=== PATIENT | female | born 1955 | race Caucasian/White ===

== ENCOUNTER → 2017-02-21 | Outpatient (CLI) | payer BC ==
[~2017-02-21] MED LIST: AC325T; ACC15GT EXT; ACYC800T57 PO; CIPR500S2; DIAZ5TAB3; HYDR1TAB8 OP
--- NOTE | 2017-02-21 20:01 | Diagnostic Imaging Report ---
Bilateral screening mammogram The current study was also evaluated with a Computer Aided Detection (CAD) system. Indication: Screening. No current complaints stated on the questionnaire. COMPARISON: 01/16/16. FINDINGS: The breasts are composed of heterogeneously dense parenchyma which may decrease mammographic sensitivity. Biopsy clip in the outer aspect of the right breast is seen. There is no mass, architectural distortion or suspicious cluster of calcification identified. Allowing for technique and positional differences, no suspicious change is seen. IMPRESSION: Dense breasts with no definite change. ACR BI-RADS Category 2: Benign findings. Result letter will be mailed to the patient. Note: At least 10% of breast cancer is not imaged by mammography. Dictated by: Dictated on workstation # [id number]
== END ==
LOC: RAD 11:08
PROVIDERS: ATTEND Nurse Practitioner Family
DX: Z12.31 Encounter for screening mammogram for malignant neoplasm of breast (principal)
CPT/HCPCS: 77067

== ENCOUNTER → 2018-03-14 | Outpatient (CLI) | payer BC ==
--- NOTE | 2018-03-14 12:56 | Diagnostic Imaging Report ---
INDICATION: Routine screening. Comparison is made with prior study from 02/21/2017 and 01/16/2016. The current study was also evaluated with a Computer Aided Detection (CAD) system. Both breasts are heterogeneously dense, limiting the sensitivity of mammography. Biopsy clip upper outer right breast is again noted. The overall parenchymal pattern appears to be stable. No dominant mass or malignant appearing microcalcifications are seen. The axillae are unremarkable. IMPRESSION: BI-RADS category 2 No mammographic features suspicious for malignancy are identified. ACR BI-RADS Category 2: Benign findings. Result letter will be mailed to the patient. Note: At least 10% of breast cancer is not imaged by mammography. Dictated by: Dictated on workstation # [id number]
== END ==
LOC: RAD 10:00
PROVIDERS: ATTEND Nurse Practitioner Family
DX: Z12.31 Encounter for screening mammogram for malignant neoplasm of breast (principal)
CPT/HCPCS: 77067

== ENCOUNTER → 2018-12-19 | Outpatient (CLI) | payer BC ==
--- NOTE | 2018-12-19 13:20 | Diagnostic Imaging Report ---
PROCEDURE: US Non-ob pelvis comp/trans. TECHNIQUE: Multiple realtime grayscale images were obtained of the pelvis in various projections endovaginally. Transabdominal imaging was also performed. INDICATION: Postmenopausal bleeding. FINDINGS: The uterus measures 5.0 x 4.7 x 2.5 cm. The endometrium is 5 mm in thickness. There may be trace fluid within the endometrial canal. No myometrial mass is seen. Adnexal evaluation was performed. Ovaries cannot be visualized due to overlying bowel gas. No adnexal mass or free fluid is detected. IMPRESSION: 1. Nonvisualized ovaries. 2. Trace fluid in the endometrial canal. The study is otherwise unremarkable. Dictated by: Dictated on workstation # [id number]
== END ==
LOC: RAD 10:49
PROVIDERS: ATTEND Obstetrics & Gynecology
DX: N95.0 Postmenopausal bleeding (principal)
CPT/HCPCS: 76830; 76856

== ENCOUNTER → 2019-05-28 | Outpatient (CLI) | payer BC ==
--- NOTE | 2019-05-28 13:54 | Diagnostic Imaging Report ---
INDICATION: Screening. TECHNIQUE: The current study was also evaluated with a Computer Aided Detection (CAD) system. 3D Tomographic imaging was also performed. COMPARISON: 03/14/2018, 02/21/2017, and 09/15/2016. FINDINGS: The fibroglandular tissue is heterogeneously dense bilaterally. There is a surgical clip in the upper-outer right breast. There are a few benign type calcifications. There is no dominant mass, spiculated lesion, or suspicious calcification identified. IMPRESSION: Benign findings. ACR BI-RADS Category 2: Benign findings. Result letter will be mailed to the patient. Note: At least 10% of breast cancer is not imaged by mammography. Dictated by: Dictated on workstation # [id number]
== END ==
LOC: RAD 10:08
PROVIDERS: ATTEND Obstetrics & Gynecology
DX: Z12.31 Encounter for screening mammogram for malignant neoplasm of breast (principal)
CPT/HCPCS: 77067

== ENCOUNTER → 2021-05-05 | Outpatient (CLI) | payer BC ==
--- NOTE | 2021-05-05 13:36 | Diagnostic Imaging Report ---
INDICATION: Screening for osteoporosis. COMPARISON: None. FINDINGS: The bone mineral density of the spine, the hips and the femoral necks was measured. There are no prior studies available for comparison. The total T score for the spine is -2.6. The total T score for the left hip is -2.8 and for the right hip -3.0. The T score for the left femoral neck is -2.9 and for the right femoral neck -2.8. All of these values fall within the range of osteoporosis. AP Spine L1-L4: [BMD (g/cm2): 0.883] [T-Score: -2.6] [Z-Score: -0.9] [BMD Previous: na] [BMD % Change: na] LT Hip Neck: [BMD (g/cm2): 0.637] [T-Score: -2.9] [Z-Score: -1.3] LT Hip Total: [BMD (g/cm2):0.653] [T-Score:-2.8] [Z-Score: -1.5] [BMD Previous: na] [BMD % Change: na] RT Hip Neck: [BMD (g/cm2):0.647] [T-Score:-2.8] [Z-Score:-1.2] RT Hip Total: [BMD (g/cm2):0.632] [T-score:-3.0] [Z-Score:-1.7] [BMD Previous:na] [BMD % Change:na] *Indicates significant change from prior examination based on 95% confidence level. World Health Organization criteria for BMD interpretation classify patients as Normal (T-score at or above -1.0), Osteopenic (T-score between -1.0 and -2.5) or Osteoporotic (T-score at or below -2.5). LIMITATIONS AND MODIFICATION: None. FRACTURE RISK (FRAX SCORE): The ten year probability of (%): Major Osteoporotic Fracture: [na] Hip Fracture: [na] IMPRESSION: 1. There is osteoporosis of the spine, the hips and the femoral necks. 2. See below National Osteoporosis Foundation guidelines on when to potentially initiate pharmacologic therapy. Based on the National Osteoporosis Foundation Guidelines, pharmacologic treatment should be initiated in any of the following, unless clinical conditions suggest otherwise: * Any patient with prior fragility fracture of the hip or vertebrae. A spine fracture indicates 5X risk for subsequent spine fracture and 2X risk for subsequent hip fracture. * Osteoporosis (T-score <-2.5). * Postmenopausal women and men age 50 and older with low bone mass/osteopenia (T-score between -1.0 and -2.5) by DXA and 10-year major osteoporotic fracture greater than 20% or a 10-year probability of hip fracture greater than 3%. These fracture risks are supplied above in the FRAX score, if applicable. * Clinician judgement and/or patient preferences may indicate treatment for people with 10-year fracture probabilities above or below these levels. Dictated by: Dictated on workstation # [id number]
--- NOTE | 2021-05-06 10:05 | Diagnostic Imaging Report ---
EXAMINATION: Digital mammogram bilateral screening with CAD. INDICATION: Screening. COMPARISON: This study was compared to the prior exams of 05/28/2019, 03/14/2018, and 02/21/2017. PERSONAL HISTORY: At this time, there are no current complaints. FINDINGS: The fibroglandular tissue in both breasts is heterogeneously dense. This does limit the sensitivity of this exam. Overall, there does not appear to have been any significant change when compared to the prior study. No primary or secondary sign of malignancy is noted. The stereotactic clip deep in the upper outer quadrant of the right breast seen previously is again evident and no different. IMPRESSION: There is no radiographic evidence for malignancy. ACR BI-RADS Category 1: Negative. Result letter will be mailed to the patient. Note: At least 10% of breast cancer is not imaged by mammography. Dictated by: Dictated on workstation # [id number]
== END ==
LOC: RAD 12:30
PROVIDERS: ATTEND Obstetrics & Gynecology
DX: Z12.31 Encounter for screening mammogram for malignant neoplasm of breast (principal); Z13.820 Encounter for screening for osteoporosis; M81.0 Age-related osteoporosis without current pathological fracture
CPT/HCPCS: 77063; 77067; 77080

== ENCOUNTER → 2023-01-18 | Outpatient (CLI) | payer BC ==
--- NOTE | 2023-01-18 15:19 | Diagnostic Imaging Report ---
PROCEDURE: US Non-ob pelvis comp/trans. INDICATION: Postmenopausal bleeding TECHNIQUE: Multiple real time landry scale sonographic images were obtained of the pelvis transabdominally and endovaginally. CORRELATION STUDY: 12/19/2018 FINDINGS: UTERUS: 8.6 x 3.6 x 5.3 cm. The uterus appearing unremarkable. ENDOMETRIUM: 1.3 cm. The endometrium is considered abnormally thickened in a postmenopausal patient. RIGHT OVARY: 1.7 x 1.3 x 1.2 cm. The right ovary has a generally unremarkable appearance. LEFT OVARY: Not visualized, perhaps obscured by overlying bowel gas.. No significant free pelvic fluid. IMPRESSION: 1. The endometrium is considered abnormally thickened in a postmenopausal patient. While some of this may be owing to reported hormone stimulation, particularly given abnormal endometrial bleeding, the possibility of malignancy should be excluded. Dictated by: Dictated on workstation # [id number]
== END ==
LOC: RAD 12:00
PROVIDERS: ATTEND Nurse Practitioner Women's Health
DX: N85.8 Other specified noninflammatory disorders of uterus (principal); N95.0 Postmenopausal bleeding
CPT/HCPCS: 76830; 76856

== ENCOUNTER 2023-01-31 05:40 | Outpatient (CLI) | payer BC ==
[~2023-01-31] VITALS: Ht 167.7 cm; Wt 59.1 kg
[2023-01-31] MEDS ORDERED: MULT-1021 PO (10:03)
[2023-01-31] MEDS ORDERED: IBUP1TAB PO (10:03)
[2023-01-31] MEDS ORDERED: ESTR0.5T VG (10:03)
[2023-01-31] MEDS ORDERED: [UNRECOGNIZED DRUG - CODE] PO (10:03)
[2023-01-31] MEDS ORDERED: CALC-722 PO (10:03)
== END 2023-01-31 12:32 | disposition home or self-care (01) ==
LOC: PREOP 05:40
PROVIDERS: ATTEND Obstetrics & Gynecology
DX: Z01.818 Encounter for other preprocedural examination (principal)

== ENCOUNTER 2023-02-01 11:25 | Day surgery (SDC) | payer BC ==
[2023-02-01] VITALS (11 sets, daily range): BP systolic 82–104; BP diastolic 0–59
[~2023-02-01] VITALS: Ht 167.7 cm; Wt 59.1 kg
[~2023-02-01 11:25] MED LIST changes: +CALC-722 PO; +ESTR0.5T VG; +IBUP1TAB PO; +MULT-1021 PO; +[UNRECOGNIZED DRUG - CODE] PO
[2023-02-01 12:26] LABS: BASOPHILS % (AUTO) 0 % (0-10); EOSINOPHILS # (AUTO) 0.1 10^3/uL (0.0-0.3); EOSINOPHILS % (AUTO) 1 % (0-10); HEMATOCRIT 40 % (35-52); HEMOGLOBIN 13.1 g/dL (11.5-16.0); LYMPHOCYTES # (AUTO) 1.6 10^3/uL (1.0-4.0); LYMPHOCYTES % (AUTO) 20 % (12-44); MEAN CORPUSCULAR HEMOGLOBIN 31 pg (25-34); MEAN CORPUSCULAR HGB CONC 33 g/dL (32-36); MEAN CORPUSCULAR VOLUME 93 fL (80-99); MEAN PLATELET VOLUME 11.9 fL (9.0-12.2); MONOCYTES # (AUTO) 0.5 10^3/uL (0.0-1.0); MONOCYTES % (AUTO) 6 % (0-12); NEUTROPHILS # (AUTO) 5.7 10^3/uL (1.8-7.8); NEUTROPHILS % (AUTO) 73 % (42-75); PLATELET COUNT 201 10^3/uL (130-400); WHITE BLOOD COUNT 7.9 10^3/uL (4.3-11.0)
[2023-02-01] MEDS ORDERED: BUPIVACAINE 0.25% 30 ML (SENSORCAINE) VIAL ONE (12:39)
[2023-02-01] MEDS ORDERED: fentaNYL INJ 100 MCG/2 ML AMP ONE (13:25)
[2023-02-01] MEDS ORDERED: LIDOCAINE PF 2% 5 ML (XYLOCAINE) VIAL ONE (13:25)
[2023-02-01] MEDS ORDERED: KETOROLAC 30 MG/ML VIAL ONE (13:25)
[2023-02-01] MEDS ORDERED: proPOfol 200 MG/20 ML (DIPRIVAN) VIAL IV ONE (13:25)
[2023-02-01] MEDS ORDERED: MIDAZOLAM 2 MG/2 ML (VERSED) VIAL ONE (13:25)
[2023-02-01] MEDS ORDERED: SEVOFLURANE (ULTANE) 15 ML INHAL SOLN ONE (13:25)
--- NOTE | 2023-02-01 13:41 | History & Physical-Surgical ---
HPO-Surgical History of Present Illness Chief Complaint: PMB Diagnosis/Surgical Indication: THICKENED ENDOMETRIUM, PMB Procedure: DILATION AND CURETTAGE Date of Surgery: Feb 01, 2023 Allergies and Home Medications Allergies Coded Allergies: Penicillins (Unverified Allergy, Mild, 05/26/09) Patient Home Medication List Home Medication List Reviewed: Yes Acetaminophen (Tylenol) 325 Mg Tablet, (Reported) Entered as Reported by: ROSA MARIA CHAUDHARI on 05/26/09 1054 Calcium Carb & Citrate/Vit D3 (Citracal + D ER Tablet) 600MG-12.5 Tablet.er, 1 EACH PO DAILY, (Reported) Entered as Reported by: Guerline Pan on 01/31/23 1003 Chlorphen/Pseudoeph/Ibuprofen (Advil Allergy Sinus Caplet) 2 Mg-30 Mg-200 Mg Tablet, 1 EACH PO, (Reported) Entered as Reported by: Guerline Pan on 01/31/23 1003 Estradiol (Estradiol Tablet) 0.5 Mg Tablet, 0.5 MG VG 3 TIMES A WEEK, (Reported) Entered as Reported by: Guerline Pan on 01/31/23 1003 Lactase (Lactaid) 3,000 Unit Tablet, 3,000 UNIT PO, (Reported) Entered as Reported by: Guerline Pan on 01/31/23 1003 Multivits-Min/Iron/FA/Lutein (Centrum Silver Women Tablet) 8 Mg Iron-400 Mcg-300 Mcg Tablet, 1 EACH PO DAILY, (Reported) Entered as Reported by: Guerline Pan on 01/31/23 1003 Discontinued Medications Acyclovir (Zovirax) 800 Mg Tablet, 1 EA PO 5XD Discontinued Reason: No Longer Taking Prescribed by: MARISELA QUINTANILLA on 05/26/09 1226 Acyclovir (Zovirax Oint) 15 Gm Oint, 0 EXT 5XD Discontinued Reason: No Longer Taking Prescribed by: MARISELA QUINTANILLA on 05/26/09 1226 Ciprofloxacin (Cipro) 500 Mg/5 Ml [facility], (Reported) Discontinued Reason: No Longer Taking Entered as Reported by: ROSA MARIA CHAUDHARI on 05/26/09 1053 Diazepam (Diazepam 5 Mg) 5 Mg Tablet, (Reported) Discontinued Reason: No Longer Taking Entered as Reported by: ROSA MARIA CHAUDHARI on 05/26/09 1054 Hydrocodone Bit/Ibuprofen (Vicoprofen 200-7.5 Mg Tab) 1 Each Tablet, 1-2 EACH OP Q 4 - 6 HRS PRN Discontinued Reason: No Longer Taking Prescribed by: MARISELA QUINTANILLA on 05/26/09 1226 Past Ifbdehp-Nsbvzy-Ljamve Hx Patient Social History Former Smoker, Quit: Jan 31, 1986 2nd Hand Smoke Exposure: No Recent Hopitalizations: No Immunizations Up To Date Tetanus Booster (TDap): More than 5yrs Seasonal Allergies Seasonal Allergies: Yes Surgeries Yes Lumpectomy Respiratory No Cardiovascular No Neurological No Genitourinary No Gastrointestinal No Musculoskeletal Yes Osteoporosis Endocrine History of Endocrine Disorders: No HEENT History of HEENT Disorders: No Cancer No Psychosocial History of Psychiatric Problem: No Integumentary History of Skin or Integumenta: No Blood Transfusions History of Blood Disorders: No Adverse Reaction to a Blood Tr: No Exam Vital Signs Vital Signs 02/01/23 11:35 Temp 36.7 Pulse 73 Resp 18 B/P (MAP) 97/59 (72) Pulse Ox 99 O2 Delivery Room Air Capillary Refill : Labs Laboratory Tests Test 02/01/23 12:10 Range/Units White Blood Count 7.9 4.3-11.0 10^3/uL Red Blood Count 4.27 3.80-5.11 10^6/uL Hemoglobin 13.1 11.5-16.0 g/dL Hematocrit 40 35-52 % Mean Corpuscular Volume 93 80-99 fL Mean Corpuscular Hemoglobin 31 25-34 pg Mean Corpuscular Hemoglobin Concent 33 32-36 g/dL Red Cell Distribution Width 13.3 10.0-14.5 % Platelet Count 201 130-400 10^3/uL Mean Platelet Volume 11.9 9.0-12.2 fL Immature Granulocyte % (Auto) 0 % Neutrophils (%) (Auto) 73 42-75 % Lymphocytes (%) (Auto) 20 12-44 % Monocytes (%) (Auto) 6 0-12 % Eosinophils (%) (Auto) 1 0-10 % Basophils (%) (Auto) 0 0-10 % Neutrophils # (Auto) 5.7 1.8-7.8 10^3/uL Lymphocytes # (Auto) 1.6 1.0-4.0 10^3/uL Monocytes # (Auto) 0.5 0.0-1.0 10^3/uL Eosinophils # (Auto) 0.1 0.0-0.3 10^3/uL Basophils # (Auto) 0.0 0.0-0.1 10^3/uL Immature Granulocyte # (Auto) 0.0 0.0-0.1 10^3/uL General Appearance: Alert, Oriented X3 HEENT: Atraumatic Respiratory: Clear to Auscultation Cardiovascular: Regular Rate Abdominal: Normal Bowel Sounds Neuro: Normal Gait Psych/Mental Status: Mental Status NL Assessment/Plan Assessment and Plan Diagnosis 67 yo w PMB History of unopposed estrogen use P: D and C Admission Diagnosis Diagnosis 67 yo w PMB History of unopposed estrogen use P: D and C Admission Status: Other (Same Day Surgery) SIMON ARNDT DO Feb 01, 2023 13:41
--- NOTE | 2023-02-01 13:42 | Discharge Inst-Women's Service ---
Discharge Inst-Women's Serv Depart Medication/Instructions New, Converted or Re-Newed RX: Other (OTC NSAIDs) Problems Reviewed?: Yes Consults/Follow Up Additional Follow Up: Yes Orders/Referrals Brenna in 2-3 weeks Activity Activity: Activity as Tolerated NO SMOKING: NO SMOKING Nothing Inside Vagina: No Douching, No [place], No Tampons Diet Discharge Diet: No Restrictions Symptoms to Report to : Bleeding Excessive, Pain Increased, Fever Over 101 Degrees F, Vaginal Bleeding Increase, Questions/Concerns For Any Problems or Questions: Contact Your Physician SIMON ARNDT DO Feb 01, 2023 13:42
[2023-02-01] MEDS ORDERED: ONDANSETRON 4 MG/2 ML (SDV) Z0FRAN IVP PRN ×2 (13:45→14:15)
[2023-02-01] MEDS ORDERED: D5 LR IV SOLUTION 1,000 ML IV SCH (13:45)
[2023-02-01] MEDS ORDERED: HYDROcodone/APAP 5 MG/325 MG (LORTAB) TAB PO PRN (13:45)
[2023-02-01] MEDS ORDERED: KETOROLAC 30 MG/ML VIAL IVP ONE (13:45)
[2023-02-01] MEDS ORDERED: morphine INJ 10 MG/ML 1ML (SYR OR VIAL) IVP ONE (14:15)
[2023-02-01] MEDS ORDERED: LACTATED RINGERS 1,000 ML IV PRN (14:15)
[2023-02-01] MEDS ORDERED: MEPERIDINE (DEMEROL) INJ 50 MG/ML IVP ONE (14:15)
--- NOTE | 2023-02-01 19:13 | OPERATIVE REPORT ---
DATE OF SERVICE: 02/01/2023 PREOPERATIVE DIAGNOSES: 1. A 67-year-old female with postmenopausal bleeding. 2. History of unopposed estrogen oral use. POSTOPERATIVE DIAGNOSES: 1. A 67-year-old female with postmenopausal bleeding. 2. History of unopposed estrogen oral use. PROCEDURES: D and C. SURGEON: Simon Arndt DO ANESTHESIA: LMA general. ESTIMATED BLOOD LOSS: Minimal. URINE OUTPUT: 50 mL drained at start of procedure. FLUIDS: 800 mL lactated Ringer's solution. FINDINGS: Grossly normal-appearing external female genitalia. Atrophic mucosa and external vulva consistent with menopausal status. SPECIMENS SENT: Endometrial curettings. INDICATIONS FOR PROCEDURE: This is a 67-year-old female who had a consultation to our office for ongoing issues with postmenopausal bleeding. She had an ultrasound, which evaluated the endometrial lining; however, due to her history of unopposed estrogen use, we discussed with the patient proceeding with endometrial biopsy. Risks of the procedure were discussed with the patient in detail. She wished to proceed with D and C. After all of her questions were answered, consent was obtained. The patient was taken to the operating room. OPERATIVE REPORT IN DETAIL: Once in the operating room, anesthesia was administered and found to be adequate. She was placed in the dorsal lithotomy position, prepped and draped in normal sterile fashion. A timeout was performed. A Graves speculum inserted into the patient's vagina, which allows me to visualize the cervix, which was grasped at 12 o'clock position using a long single tooth tenaculum. I then performed a paracervical block at 3 and 9 o'clock positions on the cervix. Care was taken to aspirate for injecting, 5 mL of 0.25% Marcaine injected into each site. I then gently sound the uterine cavity depth was found to be 6 cm. I then gently dilated the cervix using Hanks dilators to maximum dilatation approximately 1 cm, at which point I performed a gentle curettage of the endometrium. I collected as much tissue as I can from endometrium, which is still a small amount of tissue collected. It was sent as endometrial curettings. There was no active bleeding noted from the cervix after that was performed, all instruments were then removed from the patient's vagina. The patient tolerated the procedure well and was taken to recovery in stable condition. Lap and sponge counts were correct at the end of the procedure. Instrument counts correct as well. Job ID: [id number] DocumentID: [id number] Dictated Date: 02/01/2023 14:42:48 Music Department Chair Date: 02/01/2023 19:12:00 Dictated By: SIMON ARNDT DO
--- NOTE | 2023-02-09 13:31 | Anesthesia-General Post-Op ---
General Significant Intra-Op Events Notes late entry postop from 02-01-23 at 1430 Patient Condition Mental Status/LOC: Same as Preop Cardiovascular: Satisfactory Nausea/Vomiting: Absent Respiratory: Satisfactory Pain: Controlled Complications: Absent Post Op Complications Complications None Follow Up Care/Instructions Patient Instructions None needed. Anesthesia/Patient Condition Patient Condition Patient is doing well, no complaints, stable vital signs, no apparent adverse anesthesia problems. No complications reported per nursing. JOURDAN LOPES CRNA Feb 09, 2023 13:31
== END 2023-02-01 16:20 | disposition home or self-care (01) ==
LOC: SDC 11:25
PROVIDERS: ATTEND Obstetrics & Gynecology
DX: N95.0 Postmenopausal bleeding (principal); N84.0 Polyp of corpus uteri; N87.9 Dysplasia of cervix uteri, unspecified; R93.89 Abnormal findings on diagnostic imaging of other specified body structures; Z98.890 Other specified postprocedural states; Z87.891 Personal history of nicotine dependence
CPT/HCPCS: 36415; 85025; 86850; 86900; 86901; 87081